=== PATIENT | male | born 1970 | race African-American/Black ===

== ENCOUNTER 2017-01-29 12:59 | Inpatient (IN) | payer OTHER ==
[~2017-01-29] VITALS: Ht 177.8 cm; Wt 99.0 kg
[2017-01-29 14:24] LABS: PLATELET COUNT 399 x10^3mcL (130-400); RED CELL DISTRIBUTION WIDTH 12.9 % (11.5-14.5)
[2017-01-29 15:35] LABS: ATYPICAL LYMPH 2 %; BAND NEUTROPHIL 3 % (0-10); BASOPHIL 0 % (0-2); MONOCYTE 4 % (0-7); PLATELET MORPHOLOGY PLATELETS INCREASED; SEGMENTED NEUTROPHILS 87 % (37-75); rbc morphology (normal/abnorm) NORMAL (NORMAL)
[2017-01-29 15:41] LABS: ALBUMIN 3.8 g/dL (3.4-5.0); ALKALINE PHOSPHATASE 100 U/L (46-116); ALT/SGPT 52 U/L (16-63); AST/SGOT 34 U/L (15-37); BILIRUBIN TOTAL 0.39 mg/dL (0.20-1.00); CALCIUM 9.1 mg/dL (8.5-10.1); CARBON DIOXIDE 20.8 mmol/L (21-32); CHLORIDE SERUM 97 mmol/L (98-107); CREATININE SERUM 1.2 mg/dL (0.7-1.3); GFR1 > 60 mL/min; POTASSIUM SERUM 4.7 mmol/L (3.5-5.1); SODIUM SERUM 132 mmol/L (136-145); TOTAL PROTEIN, SERUM 7.8 g/dL (6.4-8.2)
[2017-01-29 15:51] LABS: GLUCOSE SERUM 530 mg/dL (74-106)
[2017-01-29] MEDS ORDERED: ROBAXIN-750750 MG PO (16:37)
[2017-01-29 17:59] VITALS: BP 133/87
[2017-01-29 18:02] VITALS: Ht 177.8 cm; Wt 99.0 kg
[2017-01-29 19:33] LABS: T3 TOTAL 0.94 ng/mL
[2017-01-29 20:09] LABS: FREE T4 1.04 ng/dL (0.76-1.46); FREE THYROXINE INDEX 2.9 ug/dL (1.4-4.5); T4(THYROXINE) 8.4 ug/dL (4.7-13.3)
[2017-01-29 20:10] LABS: AMYLASE 52 U/L (25-115); CHOLESTEROL 135 mg/dL (<200); MAGNESIUM 1.7 mg/dL (1.8-2.4); PHOSPHOROUS 3.5 mg/dL (2.5-4.9)
[2017-01-29 20:12] LABS: HDL CHOLESTEROL 15 mg/dL (40-60); TRIGLYCERIDES 804 mg/dL (<150)
[2017-01-29 21:37] VITALS: BP 116/68
[2017-01-30 00:09] LABS: microscopic required? NO
[2017-01-30 00:21] LABS: UA SPECIFIC GRAVITY 1.025 (1.005-1.035); urine erythrocyte NEGATIVE (NEGATIVE)
[2017-01-30 00:29] LABS: AMPHETAMINE QUAL UR NONE DETECTED (NEG <=1000)
[2017-01-30 05:52] VITALS: BP 127/71
[2017-01-30 06:22] LABS: CHLORIDE SERUM 102 mmol/L (98-107); CREATININE SERUM 0.8 mg/dL (0.7-1.3); GFR1 > 60 mL/min; GLUCOSE SERUM 275 mg/dL (74-106); POTASSIUM SERUM 3.8 mmol/L (3.5-5.1); SODIUM SERUM 136 mmol/L (136-145)
[2017-01-30 07:40] LABS: PLATELET COUNT 287 x10^3mcL (130-400); RED CELL DISTRIBUTION WIDTH 13.3 % (11.5-14.5)
[2017-01-30 07:41] LABS: BASOPHIL % 0 % (0-2)
[2017-01-30 10:08] VITALS: BP 115/83
[2017-01-30 14:10] VITALS: BP 118/84
[2017-01-30 18:29] VITALS: BP 119/79
[2017-01-30 22:07] VITALS: BP 134/83
[2017-01-31 06:18] VITALS: BP 107/67
[2017-01-31 07:27] LABS: CALCIUM 8.5 mg/dL (8.5-10.1); CARBON DIOXIDE 24.7 mmol/L (21-32); CHLORIDE SERUM 104 mmol/L (98-107); CREATININE SERUM 0.7 mg/dL (0.7-1.3); GFR1 > 60 mL/min; GLUCOSE SERUM 228 mg/dL (74-106); MAGNESIUM 1.7 mg/dL (1.8-2.4); PHOSPHOROUS 3.1 mg/dL (2.5-4.9); POTASSIUM SERUM 3.8 mmol/L (3.5-5.1); SODIUM SERUM 136 mmol/L (136-145)
[2017-01-31 07:29] LABS: BASOPHIL % 0.3 % (0-2); PLATELET COUNT 241 x10^3mcL (130-400); RED CELL DISTRIBUTION WIDTH 13.5 % (11.5-14.5)
[2017-01-31 09:41] VITALS: BP 105/74
[2017-01-31] MEDS ORDERED: LEVEMIR100 U/M1 SQ (12:24)
[2017-01-31] MEDS ORDERED: BG FS (12:24)
[2017-01-31] MEDS ORDERED: HUMULIN R100 U/1 M1 SC (12:34)
[2017-01-31] MEDS ORDERED: GEMFIBROZIL600 MG PO (12:35)
[2017-01-31 12:53] VITALS: BP 105/74
== END 2017-01-31 13:49 | disposition home or self-care (01) | DRG 438 ==
LOC: ED 12:59 → MU 16:40 → DU 16:40 → MU 01-30 09:27
PROVIDERS: Emergency Medicine; Family Medicine; ADMIT Family Medicine Sports Medicine
DX: K85.90 Acute pancreatitis without necrosis or infection, unspecified (principal); N17.0 Acute kidney failure with tubular necrosis; E11.00 Type 2 diabetes mellitus with hyperosmolarity without nonketotic hyperglycemic-hyperosmolar coma (NKHHC); D68.69 Other thrombophilia; E87.1 Hypo-osmolality and hyponatremia; E83.42 Hypomagnesemia; E83.51 Hypocalcemia; E87.8 Other disorders of electrolyte and fluid balance, not elsewhere classified; D50.9 Iron deficiency anemia, unspecified; E78.5 Hyperlipidemia, unspecified; M62.838 Other muscle spasm; Z79.4 Long term (current) use of insulin; Z68.34 Body mass index [BMI] 34.0-34.9, adult
CPT/HCPCS: 82962; 83880; 84439; 94150; J1815; J1885; J2270; J3475; J7030; Q0092